=== PATIENT | male | born 1980 | race African-American/Black ===

== ENCOUNTER 2022-03-03 08:01 | Emergency (ER) | payer MEDICAID ==
[~2022-03-03] VITALS: Ht 193 cm; Wt 124.3 kg
[2022-03-03 08:06] VITALS: BP 148/95
[2022-03-03] MEDS ORDERED: DOXYCYCLINE 100 MG CAP PO ONE (08:30)
[2022-03-03] MEDS ORDERED: cefTRIAXone 500 MG in LIDOCAINE MPF 1% 1 ML IM ONE (08:30)
[2022-03-03] MEDS ORDERED: cefTRIAXone 500 MG VIAL ONE (08:37)
[2022-03-03] MEDS ORDERED: LIDOCAINE MPF 1% 5 ML ONE (08:37)
[2022-03-03 09:40] LABS: APPEARANCE,URINE CLEAR (CLEAR); BILIRUBIN,URINE NEGATIVE (NEGATIVE); BLOOD, URINE NEGATIVE (NEGATIVE); COLOR,URINE YELLOW (YELLOW); LEUKOCYTE ESTERASE ,URINE TRACE (NEGATIVE); NITRITE, URINE NEGATIVE (NEGATIVE); UGLUCOSE NEGATIVE (NEGATIVE)
[2022-03-03 10:04] LABS: WBC,URINE 80-100 /HPF (0-5)
[2022-03-03] MEDS ORDERED: CEPH-588 PO (10:14)
[2022-03-03] MEDS ORDERED: DOXY-690 PO (10:14)
[2022-03-03 10:25] VITALS: BP 148/95
== END 2022-03-03 09:31 | disposition home or self-care (01) ==
LOC: MED 08:01
DX: N34.2 Other urethritis (principal); J20.8 Acute bronchitis due to other specified organisms
CPT/HCPCS: 71046; 81001; 87086; 87491; 96372; 99284; J0696; J2001

== ENCOUNTER 2023-05-08 11:11 | Emergency (ER) | payer MEDICAID ==
[~2023-05-08] VITALS: Ht 195.6 cm; Wt 120.2 kg
[~2023-05-08 11:11] MED LIST: CEPH-588 PO; DOXY-690 PO
[2023-05-08 11:31] VITALS: BP 146/81; PULSE 90; RESP 19; TEMP 98.1; O2SAT 100
[2023-05-08 12:02] LABS: BASOPHILS % (AUTO) 0.4 % (0.0-2.0); EOSINOPHILS % (AUTO) 0.2 % (0.0-4.0); HEMATOCRIT 39.4 % (36-52); HEMOGLOBIN 13.3 g/dL (12.0-18.0); LYMPHOCYTES # (AUTO) 1.4 K/uL (2.0-11.5); LYMPHOCYTES % (AUTO) 10.8 % (20.5-51.1); MEAN CORPUSCULAR HEMOGLOBIN 29 pg (27-31); MEAN CORPUSCULAR HGB CONC 34 g/dL (33-37); MEAN CORPUSCULAR VOLUME 86.6 fL (80-94); MONOCYTES # (AUTO) 0.8 K/uL (0.8-1.0); MONOCYTES % (AUTO) 6.6 % (1.7-9.3); NEUTROPHILS # (AUTO) 10.3 K/uL (1.8-7.7); PLATELET COUNT (AUTO) 175 K/uL (140-450); RED BLOOD CELL COUNT(AUTO) 4.56 MIL/uL (4.20-6.10); RED CELL DISTRIBUTION WIDTH 14.3 % (11.6-13.7); WHITE BLOOD COUNT (AUTO) 12.6 K/uL (4.8-10.8)
[2023-05-08 12:10] LABS: ANION GAP 13.5 (8-16); CALCIUM 8.9 mg/dL (8.5-10.1); CARBON DIOXIDE 24.1 mmol/L (21-32); POTASSIUM 3.6 mmol/L (3.5-5.1)
[2023-05-08] MEDS: NACL 0.9% 1,000 ML IV SCH (12:14)
[2023-05-08] MEDS: ONDANSETRON 4 MG/2 ML VIAL IVP ONE (12:14)
[2023-05-08 12:19] LABS: ALANINE AMINOTRANSFERASE 26 U/L (12-78); ALBUMIN 3.5 g/dL (3.4-5.0); ALKALINE PHOSPHATASE 61 U/L (50-136); ASPARTATE AMINOTRANSFERASE 19 U/L (15-37); BILIRUBIN,DIRECT 0.4 mg/dL (0.0-0.3); LIPASE 21 U/L (16-77); TOTAL BILIRUBIN 1.4 mg/dL (0.0-1.0); TOTAL PROTEIN, SERUM 8.6 g/dL (6.4-8.2)
[2023-05-08 13:15] LABS: APPEARANCE,URINE CLEAR (CLEAR); BILIRUBIN,URINE NEGATIVE (NEGATIVE); BLOOD, URINE TRACE-I (NEGATIVE); COLOR,URINE YELLOW (YELLOW); LEUKOCYTE ESTERASE ,URINE NEGATIVE (NEGATIVE); NITRITE, URINE NEGATIVE (NEGATIVE); PROTEIN,URINE NEGATIVE (NEGATIVE); UGLUCOSE NEGATIVE (NEGATIVE); UROBILINOGEN,URINE 0.2 EU/dL (0.2 - 1)
[2023-05-08] MEDS: KETOROLAC 30 MG/ML VIAL IM ONE (13:19)
[2023-05-08] MEDS: ONDANSETRON 4 MG ODT PO ONE (13:20)
[2023-05-08] MEDS: HYDROcodone/APAP 5/325 MG 1 TAB TAB PO ONE (13:20)
[2023-05-08 13:21] LABS: RBC,URINE 0-5 /HPF (0-5)
[2023-05-08 13:22] LABS: BACTERIA,URINE OCCASSIONAL /HPF (None Seen); SQUAMOUS EPITHELIAL CELL,UR 0-3 (FEW) /LPF (0-3 (FEW)); WBC,URINE 0-5 /HPF (0-5)
[2023-05-08] MEDS ORDERED: AMOX1TAB8 PO (13:32)
[2023-05-08] MEDS ORDERED: ONDA-188 SL (13:32)
[2023-05-08 13:34] LABS: AMPHETAMINE, URINE NEGATIVE ng/ml (NEG <=1000); BARBITURATE, URINE NEGATIVE ng/ml (NEG <=200); BENZODIAZEPINE, URINE NEGATIVE ng/mL (NEG <=200); COCAINE, URINE NEGATIVE ng/mL (NEG <=300); OPIATE, URINE NEGATIVE ng/mL (NEG <=2000)
[2023-05-08 13:52] LABS: CANNABINOID, URINE POSITIVE ng/mL (NEG <=50); PHENCYCLIDINE SCREEN,URINE NEGATIVE ng/mL (NEG <=25)
[2023-05-08 13:54] VITALS: BP 146/81; PULSE 90; RESP 19; TEMP 98.1; O2SAT 100
== END 2023-05-08 13:56 | disposition home or self-care (01) ==
LOC: MED 11:11
DX: K57.92 Diverticulitis of intestine, part unspecified, without perforation or abscess without bleeding (principal); Z79.899 Other long term (current) drug therapy
CPT/HCPCS: 36415; 71045; 74176; 80048; 80076; 80305; 81001; 83690; 84484; 85025; 93005; 96361; 96372; 96374; 99285; J1885; J2405; J7030; Q0162

== ENCOUNTER 2023-07-06 10:13 | Emergency (ER) | payer MEDICAID ==
[~2023-07-06] VITALS: Ht 195.6 cm; Wt 120.2 kg
[~2023-07-06 10:13] MED LIST changes: +AMOX1TAB8 PO; +ONDA-188 SL
[2023-07-06 10:15] VITALS: BP 155/85; TEMP 98; O2SAT 100
[2023-07-06 10:34] VITALS: BP 144/88; PULSE 77; RESP 14; O2SAT 98
[2023-07-06 11:30] LABS: APPEARANCE,URINE CLEAR (CLEAR); BILIRUBIN,URINE NEGATIVE (NEGATIVE); BLOOD, URINE NEGATIVE (NEGATIVE); COLOR,URINE YELLOW (YELLOW); LEUKOCYTE ESTERASE ,URINE NEGATIVE (NEGATIVE); NITRITE, URINE NEGATIVE (NEGATIVE); PROTEIN,URINE NEGATIVE (NEGATIVE); UGLUCOSE NEGATIVE (NEGATIVE); UROBILINOGEN,URINE 0.2 EU/dL (0.2 - 1)
[2023-07-06 11:47] LABS: AMPHETAMINE, URINE NEGATIVE ng/ml (NEG <=1000); BARBITURATE, URINE NEGATIVE ng/ml (NEG <=200); BENZODIAZEPINE, URINE NEGATIVE ng/mL (NEG <=200); CANNABINOID, URINE POSITIVE ng/mL (NEG <=50); COCAINE, URINE NEGATIVE ng/mL (NEG <=300); OPIATE, URINE NEGATIVE ng/mL (NEG <=2000); PHENCYCLIDINE SCREEN,URINE NEGATIVE ng/mL (NEG <=25)
[2023-07-06 11:49] LABS: BACTERIA,URINE OCCASSIONAL /HPF (None Seen); RBC,URINE 0-5 /HPF (0-5); SQUAMOUS EPITHELIAL CELL,UR 0-3 (FEW) /LPF (0-3 (FEW)); WBC,URINE 0-5 /HPF (0-5)
[2023-07-06] MEDS: KETOROLAC 30 MG/ML VIAL IM ONE (11:52)
[2023-07-06 12:12] LABS: BASOPHILS % (AUTO) 0.4 % (0.0-2.0); EOSINOPHILS # (AUTO) 0.1 K/uL (0-0.4); HEMOGLOBIN 13.9 g/dL (12.0-18.0); LYMPHOCYTES # (AUTO) 1.5 K/uL (2.0-11.5); LYMPHOCYTES % (AUTO) 15.8 % (20.5-51.1); MEAN CORPUSCULAR HEMOGLOBIN 29 pg (27-31); MEAN CORPUSCULAR HGB CONC 34 g/dL (33-37); MEAN CORPUSCULAR VOLUME 86.5 fL (80-94); MONOCYTES # (AUTO) 0.6 K/uL (0.8-1.0); MONOCYTES % (AUTO) 6.6 % (1.7-9.3); NEUTROPHILS # (AUTO) 7.2 K/uL (1.8-7.7); NEUTROPHILS % (AUTO) 76.2 % (42.2-75.2); PLATELET COUNT (AUTO) 192 K/uL (140-450); RED BLOOD CELL COUNT(AUTO) 4.74 MIL/uL (4.20-6.10); RED CELL DISTRIBUTION WIDTH 15.2 % (11.6-13.7); WHITE BLOOD COUNT (AUTO) 9.4 K/uL (4.8-10.8)
[2023-07-06 12:34] LABS: ANION GAP 11.5 (8-16); CALCIUM 9.3 mg/dL (8.5-10.1); CARBON DIOXIDE 28.4 mmol/L (21-32); CREATININE 1.1 mg/dL (0.6-1.3); POTASSIUM 3.9 mmol/L (3.5-5.1)
[2023-07-06 12:38] LABS: ALBUMIN 3.9 g/dL (3.4-5.0); BILIRUBIN,DIRECT 0.2 mg/dL (0.0-0.3); TOTAL BILIRUBIN 0.9 mg/dL (0.0-1.0); TOTAL PROTEIN, SERUM 8.1 g/dL (6.4-8.2)
[2023-07-06] MEDS ORDERED: IBUP-2213 PO (12:53)
== END 2023-07-06 13:00 | disposition home or self-care (01) ==
LOC: MED 10:13
DX: K57.92 Diverticulitis of intestine, part unspecified, without perforation or abscess without bleeding (principal); Z79.899 Other long term (current) drug therapy
CPT/HCPCS: 36415; 74176; 80048; 80076; 80305; 81001; 83690; 85025; 96372; 99285; J1885